=== PATIENT | male | born 1980 | race Caucasian/White ===

== ENCOUNTER → 2016-12-12 | Outpatient (CLI) | payer OTHER ==
[2016-12-15 12:58] LABS: RHEUMATOID FACTOR <15 IU/mL (<15)
== END ==
LOC: LAB 14:21
PROVIDERS: ATTEND Physician Assistant Medical
DX: M25.562 Pain in left knee (principal); M25.561 Pain in right knee; M25.461 Effusion, right knee
CPT/HCPCS: 84550; 85652; 86039; 86431